=== PATIENT | female | born 1945 | race Caucasian/White ===

== ENCOUNTER 2020-01-09 07:37 | Outpatient (CLI) | payer OTHER, SELFPAY ==
--- NOTE | ~2020-01-09 | MM_ITS ---
EXAMINATION: MM screening [facility] w [facility] HISTORY: Screening mammogram TECHNIQUE: Craniocaudal and mediolateral oblique 3-D tomosynthesis images were obtained and synthetic 2-D images were generated. CAD analysis was submitted and interpreted. COMPARISON: 12/11/2018, 11/23/2017, 11/03/2016 bilateral digital screening mammogram examinations BREAST PARENCHYMAL COMPOSITION: There are scattered areas of fibroglandular density FINDINGS: There are bilateral benign calcifications. There is no evidence of suspicious mass, calcifi cation, or architectural distortion to suggest malignancy in either breast. There has been no suspici ous interval change. IMPRESSION: 1. No mammographic evidence of malignancy. 2. Recommend routine screening mammography in one year. BI-RADS Category 2: Benign finding(s). Reviewed, dictated and finalized at location A.
== END 2020-01-09 07:38 | disposition home or self-care (01) ==
LOC: ANHIMG 07:40
PROVIDERS: PCP Family Medicine; Visit Provider Family Medicine
DX: Z12.31 Encounter for screening mammogram for malignant neoplasm of breast (principal)
CPT/HCPCS: 77063; 77067

== ENCOUNTER 2021-01-11 09:47 | Outpatient (CLI) | payer OTHER, SELFPAY ==
--- NOTE | ~2021-01-11 | MM_ITS ---
EXAMINATION: MM screening [facility] w amrita HISTORY: Screening mammogram TECHNIQUE: Craniocaudal and mediolateral oblique 3-D tomosynthesis images were obtained and synthetic 2-D images were generated. CAD analysis was submitted and interpreted. COMPARISON: 01/09/2020, 12/11/2018, 11/23/2017 BREAST PARENCHYMAL COMPOSITION: There are scattered areas of fibroglandular density. FINDINGS: Scattered benign-appearing calcifications are present. Stable bilateral breast masses are c onsidered benign given the lack of interval change. There is no evidence of suspicious mass, calcific ation, or architectural distortion to suggest malignancy in either breast. There has been no suspicio us interval change. IMPRESSION: 1. No mammographic evidence of malignancy. 2. Recommend routine screening mammography in one year. BI-RADS Category 2: Benign finding(s). Reviewed, dictated and finalized at location A.
== END 2021-01-11 09:48 | disposition home or self-care (01) ==
LOC: ANHIMG 09:50
PROVIDERS: PCP Family Medicine; Visit Provider Family Medicine
DX: Z12.31 Encounter for screening mammogram for malignant neoplasm of breast (principal)
CPT/HCPCS: 77063; 77067

== ENCOUNTER 2021-09-28 00:21 | Day surgery (SDC) | payer OTHER, SELFPAY ==
[2021-09-08 13:09] VITALS: BMI 26.6
--- NOTE | 2021-09-27 16:43 | PM.HPGS ---
History of Present Illness History of Present Illness Consent: Risks, benefits, and alternatives have been discussed and questions answered. Patient agrees to proceed with procedure. Chief complaint: family hx of colon ca Narrative: Dari Muñoz is a 76 year old female Referred for colon cancer screening. Her mother had colon cancer. Her last colonoscopy was 5 years ago . Review of Systems Review of Systems: All systems reviewed & are unremarkable except as noted in HPI and below PMFSH Past Medical History Medical History Chronic kidney disease, stage 3 (moderate) Dyslipidemia Essential hypertension Family history of colon cancer Heart murmur Hypertensive chronic kidney disease with stage 1 through stage 4 chronic kidney disease, or unspecified chronic kidney disease Overweight Peripheral vascular disease, unspecified Pure hyperglyceridemia Stenosis of left subclavian artery Surgical History Surgical History History of cholecystectomy History of hysterectomy Family History Family History Father Hypertension, Onset Age: 66 Family history of renal failure Patient's father is Family history of kidney disease, Onset Age: 66 Family history of coronary artery disease Grandparent Asthma Sibling Patient's sister is in good health Family history of lung cancer Family history of irritable bowel syndrome Mother Family history of respiratory disorder, Onset Age: 80 Carcinoma of colon Family history of diabetes mellitus in first degree relative Patient's mother is Family history of coronary artery disease Diabetes mellitus, Onset Age: 79 Hypertension, Onset Age: 79 Other Family history of allergic disorder Family history of obesity Social History Social History Smoking status: Never smoker Second hand tobacco smoke exposure: No Alcohol intake: current Drinks per week: 0 Alcohol use details: rare Substance use: never Substance use type: does not use Living arrangements: alone Gender identity (if verbalized by the patient): Female Sexual Orientation (if Verbalized by the Patient): Straight or Heterosexual Spiritual care concerns: No Meds Home Medications and Allergies Home Medications Medication Instructions Recorded Confirmed Type aspirin 81 mg tablet,delayed 81 mg PO DAILY 06/09/19 09/08/21 History release (Adult Low Dose Aspirin) calcium-vitamin D3-vitamin K 500 1 tablet PO DAILY 06/09/19 09/08/21 History mg-1,000 unit-40 mcg chewable tablet (Calcium Soft Chew) multivitamin 1 cap PO DAILY 06/09/19 09/08/21 History omega-3 fatty acids 1,000 mg 1,000 mg PO DAILY 06/09/19 09/08/21 History capsule (Fish Oil Concentrate) irbesartan 150 mg tablet See Rx Instructions .Route 04/12/21 09/08/21 Rx .COMPLEX #90 tabs hydrochlorothiazide 25 mg tablet 25 mg PO DAILY #90 tabs 07/11/21 09/08/21 Rx amlodipine 5 mg tablet 5 mg PO DAILY #30 tabs 08/15/21 09/08/21 Rx pravastatin 10 mg tablet See Rx Instructions .Route 09/20/21 09/28/21 Rx .COMPLEX #90 tabs estradiol 1 mg tablet 1 mg PO DAILY #90 tabs 09/21/21 09/28/21 Rx Allergies Allergy/AdvReac Type Severity Reaction Status Date / Time guaifenesin Allergy Mild Rash Verified 09/28/21 07:12 amoxicillin Allergy Unknown Rash Verified 09/28/21 07:12 Sulfa (Sulfonamide Allergy Unknown Unknown Verified 09/28/21 07:12 Antibiotics) Exam Resp: Auscultation: clear to auscultation bilaterally Cardio: Rate: regular rate Rhythm: regular rhythm GI: GI Palp: Yes Soft to palpation and No Tenderness to palpation present (GI) Assessment and Plan Assessment and plan (1) Colon cancer screening: Code(s): Z12.11 - Encounter for screening for malignant ne
[2021-09-28 07:17] VITALS: BP 134/67; PULSE 86; RESP 19; TEMP 36.5; O2SAT 100
[2021-09-28] MEDS: LACTATED RINGERS 1,000 ML 150 ML IV CONT (07:27)
--- NOTE | 2021-09-28 08:12 | WPDANESEPPF ---
Anes - Initial Pre Proc Eval Procedure: Operation Date: 09/28/21 08:30 Proposed Procedures p Screening Colonoscopy - Brady Aguirre MD Date/Time: 09/28/21 08:12 Surgeon: Brady Aguirre MD Pre Op Diagnosis: family hx of colon ca Patient Data Age: 76 Gender: F Height: 1.57 m Weight: 63.4 kg Last Vital Signs Temp 97.7 F 09/28/21 07:17 Pulse 86 09/28/21 07:17 Resp 19 09/28/21 07:17 BP 134/67 09/28/21 07:17 Pulse Ox 100 09/28/21 07:17 O2 Del Method Room Air 09/28/21 07:17 Allergies Allergy/AdvReac Type Severity Reaction Status Date / Time guaifenesin Allergy Mild Rash Verified 09/28/21 07:12 amoxicillin Allergy Unknown Rash Verified 09/28/21 07:12 Sulfa (Sulfonamide Allergy Unknown Unknown Verified 09/28/21 07:12 Antibiotics) Home Medications Medication Instructions Recorded Confirmed Type aspirin 81 mg tablet,delayed 81 mg PO DAILY 06/09/19 09/08/21 History release (Adult Low Dose Aspirin) calcium-vitamin D3-vitamin K 500 1 tablet PO DAILY 06/09/19 09/08/21 History mg-1,000 unit-40 mcg chewable tablet (Calcium Soft Chew) multivitamin 1 cap PO DAILY 06/09/19 09/08/21 History omega-3 fatty acids 1,000 mg 1,000 mg PO DAILY 06/09/19 09/08/21 History capsule (Fish Oil Concentrate) irbesartan 150 mg tablet See Rx Instructions .Route 04/12/21 09/08/21 Rx .COMPLEX #90 tabs hydrochlorothiazide 25 mg tablet 25 mg PO DAILY #90 tabs 07/11/21 09/08/21 Rx amlodipine 5 mg tablet 5 mg PO DAILY #30 tabs 08/15/21 09/08/21 Rx pravastatin 10 mg tablet See Rx Instructions .Route 09/20/21 09/28/21 Rx .COMPLEX #90 tabs estradiol 1 mg tablet 1 mg PO DAILY #90 tabs 09/21/21 09/28/21 Rx Patient hx anesthesia problems: none Family hx anesthesia problems: none Results Review: All pre-operative results and documents have been reviewed as part of the pre-operative evaluation. [facility] Past Medical History Medical History Chronic kidney disease, stage 3 (moderate) Dyslipidemia Essential hypertension Family history of colon cancer Heart murmur Hypertensive chronic kidney disease with stage 1 through stage 4 chronic kidney disease, or unspecified chronic kidney disease Overweight Peripheral vascular disease, unspecified Pure hyperglyceridemia Stenosis of left subclavian artery Surgical History Surgical History History of cholecystectomy History of hysterectomy Family History Family History Father Hypertension, Onset Age: 66 Family history of renal failure Patient's father is Family history of kidney disease, Onset Age: 66 Family history of coronary artery disease Grandparent Asthma Sibling Patient's sister is in good health Family history of lung cancer Family history of irritable bowel syndrome Mother Family history of respiratory disorder, Onset Age: 80 Carcinoma of colon Family history of diabetes mellitus in first degree relative Patient's mother is Family history of coronary artery disease Diabetes mellitus, Onset Age: 79 Hypertension, Onset Age: 79 Other Family history of allergic disorder Family history of obesity Social History Social History Smoking status: Never smoker Second hand tobacco smoke exposure: No Alcohol intake: current Drinks per week: 0 Alcohol use details: rare Substance use: never Substance use type: does not use Living arrangements: alone Gender identity (if verbalized by the patient): Female Sexual Orientation (if Verbalized by the Patient): Straight or Heterosexual Spiritual care concerns: No Anes - Eval Final PreProcedure Day of Procedure 09/28/21 08:12 Patient weight: normal Heart: regular rate and rhythm Lungs: clear to auscultation
[2021-09-28 08:51] VITALS: BP 101/44; PULSE 68; RESP 22; O2SAT 99
[2021-09-28 09:01] VITALS: BP 105/47; PULSE 67; RESP 19; O2SAT 99
[2021-09-28 09:11] VITALS: BP 119/87; PULSE 62; RESP 15; O2SAT 99
== END 2021-09-28 09:20 | disposition home or self-care (01) ==
PROVIDERS: PCP Family Medicine; Visit Provider Internal Medicine Gastroenterology
PROC: 0DJD8ZZ Inspection of Lower Intestinal Tract, Via Natural or Artificial Opening Endoscopic (ICD-10-PCS; CPT 45378; principal; 2021-09-28 08:30)
DX: Z12.11 Encounter for screening for malignant neoplasm of colon (principal); K57.30 Diverticulosis of large intestine without perforation or abscess without bleeding; Z80.0 Family history of malignant neoplasm of digestive organs; I12.9 Hypertensive chronic kidney disease with stage 1 through stage 4 chronic kidney disease, or unspecified chronic kidney disease; N18.30 Chronic kidney disease, stage 3 unspecified; E78.5 Hyperlipidemia, unspecified; I73.9 Peripheral vascular disease, unspecified; E78.1 Pure hyperglyceridemia
CPT/HCPCS: G0105; J2704; J7120

== ENCOUNTER 2022-03-01 08:20 | Outpatient (CLI) | payer OTHER, SELFPAY ==
--- NOTE | ~2022-03-01 | MM_ITS ---
EXAMINATION: MM screening [facility] w amrita HISTORY: Screening mammogram TECHNIQUE: Craniocaudal and mediolateral oblique 3-D tomosynthesis images were obtained and synthetic 2-D images were generated. CAD analysis was submitted and interpreted. COMPARISON: 01/11/2021, 01/09/2020, 12/11/2018 bilateral screening mammogram examinations BREAST PARENCHYMAL COMPOSITION: There are scattered areas of fibroglandular density. FINDINGS: Scattered bilateral benign calcifications. Stable mild asymmetry. There is no evidence of s uspicious mass, calcification, or architectural distortion to suggest malignancy in either breast. Th ere has been no suspicious interval change. IMPRESSION: 1. No mammographic evidence of malignancy. 2. Recommend routine screening mammography in one year. BI-RADS Category 2: Benign finding(s). Reviewed, dictated and finalized at location A. HES IRONER
== END 2022-03-01 08:21 | disposition home or self-care (01) ==
LOC: ANHIMG 08:24
PROVIDERS: PCP Family Medicine; Visit Provider Family Medicine
DX: Z12.31 Encounter for screening mammogram for malignant neoplasm of breast (principal)
CPT/HCPCS: 77063; 77067

== ENCOUNTER 2023-06-12 08:48 | Outpatient (CLI) | payer OTHER, SELFPAY ==
--- NOTE | ~2023-06-12 | MM_ITS ---
EXAMINATION: MM screening [facility] w amrita HISTORY: Screening TECHNIQUE: Craniocaudal and mediolateral oblique 3-D tomosynthesis images were obtained and synthetic 2-D images were generated. CAD analysis was submitted and interpreted. COMPARISON: Comparison to multiple prior studies sequentially, with oldest reviewed study dated 11/03. BREAST PARENCHYMAL COMPOSITION: There are scattered areas of fibroglandular density. FINDINGS: There is no evidence of suspicious mass, calcification, or architectural distortion to sugg est malignancy in either breast. There has been no suspicious interval change. IMPRESSION: 1. No mammographic evidence of malignancy. 2. Recommend routine screening mammography in one year. BI-RADS Category 1: Negative Reviewed, dictated and finalized at location A. ARIAN
== END 2023-06-12 08:49 | disposition home or self-care (01) ==
PROVIDERS: PCP Family Medicine; Visit Provider Family Medicine
DX: Z12.31 Encounter for screening mammogram for malignant neoplasm of breast (principal)
CPT/HCPCS: 77063; 77067

== ENCOUNTER 2023-06-30 14:51 | Emergency (ER) | payer OTHER, SELFPAY ==
--- NOTE | 2023-06-30 14:53 | ED.URI ---
HPI - URI/Sore Throat General Chief Complaint: Upper Respiratory Infection Stated Complaint: Congestion,Cough,Runny Nose Time Seen by Provider: 06/30/23 14:53 Source: patient Mode of arrival: ambulatory Limitations: no limitations History of Present Illness HPI Narrative: Patient is a 77-year-old female who presents with 1 week of cough, congestion, runny nose. Patient states over the last 2 days she has had increased burning sensation when coughing. Patient has been using Astepro nasal spray for the last 3 days. Denies any shortness of breath, fever, chills, nausea, vomiting, diarrhea. Reports history of pneumonia. Related Data Home Medications Medication Instructions Recorded Confirmed aspirin 81 mg tablet,delayed 81 mg PO DAILY 06/09/19 06/30/23 release (Adult Low Dose Aspirin) calcium-vitamin D3-vitamin K 500 1 tablet PO DAILY 06/09/19 06/30/23 mg-1,000 unit-40 mcg chewable tablet (Calcium Soft Chew) multivitamin 1 cap PO DAILY 06/09/19 06/30/23 omega-3 fatty acids 1,000 mg 1,000 mg PO DAILY 06/09/19 06/30/23 capsule (Fish Oil Concentrate) Allergies Allergy/AdvReac Type Severity Reaction Status Date / Time amoxicillin AdvReac Mild Rash Verified 06/30/23 15:07 guaifenesin AdvReac Mild Rash Verified 06/30/23 15:07 Sulfa (Sulfonamide AdvReac Mild Rash Verified 06/30/23 15:07 Antibiotics) Review of Systems Review of Systems: All systems reviewed & are unremarkable except as noted in HPI and below Constitutional: Constitutional: Denies body ache(s), Denies chills, Denies fatigue, Denies fever(s), Denies headache(s), Denies malaise and Denies weakness Eyes: Eyes: Denies blurry vision, Denies itchy eyes and Denies loss of vision ENT: Denies otalgia, Denies headache(s), Reports nasal congestion, Denies sinus pain and Denies sore throat Cardiovascular: Cardiovascular: Denies chest pain, Denies irregular heart rhythm and Denies dyspnea Respiratory: Respiratory: Reports cough and Denies dyspnea Gastrointestinal: Gastrointestinal: Denies abdominal pain, Denies diarrhea, Denies nausea and Denies vomiting Musculoskeletal: Musculoskeletal: Denies back pain, Denies myalgias and Denies arthralgias Integumentary/Breasts: Skin/Breast: Denies pruritus and Denies rash Neurologic: Denies headache(s), Denies loss of vision and Denies weakness Psychiatric: Psychiatric: Reports no additional psychiatric complaints Endocrine: Endocrine: Denies fatigue Allergic/Immunologic: Allergic/Immunologic: Denies itchy eyes PMFSH Past Medical History Medical History Chronic kidney disease, stage 3 (moderate) Dyslipidemia Essential hypertension Family history of colon cancer Heart murmur Hypertensive chronic kidney disease with stage 1 through stage 4 chronic kidney disease, or unspecified chronic kidney disease Overweight Peripheral vascular disease, unspecified Pure hyperglyceridemia Stenosis of left subclavian artery Surgical History Surgical History History of cholecystectomy History of hysterectomy Family History Family History Father Hypertension, Onset Age: 66 Family history of renal failure Patient's father is Family history of kidney disease, Onset Age: 66 Family history of coronary artery disease Grandparent Asthma Sibling Patient's sister is in good health Family history of lung cancer Family history of irritable bowel syndrome Mother Family history of respiratory disorder, Onset Age: 80 Carcinoma of colon Family history of diabetes mellitus in first degree relative Patient's mother is Family history of coronary artery disease Diabetes mellitus, Onset Age: 79 Hypertension, Onset Age: 79 Other Family history of allergic disorder Family history of obesity Social History Soci
[2023-06-30 15:04] VITALS: BP 144/63; PULSE 69; RESP 16; TEMP 36.5; O2SAT 99
== END 2023-06-30 17:23 | disposition home or self-care (01) ==
PROVIDERS: Emergency Provider Nurse Practitioner Family; PCP Family Medicine
DX: J06.9 Acute upper respiratory infection, unspecified (principal); E78.5 Hyperlipidemia, unspecified; I12.9 Hypertensive chronic kidney disease with stage 1 through stage 4 chronic kidney disease, or unspecified chronic kidney disease; N18.30 Chronic kidney disease, stage 3 unspecified; R01.1 Cardiac murmur, unspecified; I73.9 Peripheral vascular disease, unspecified; Z79.82 Long term (current) use of aspirin
CPT/HCPCS: 99213; G0463

== ENCOUNTER 2023-08-15 07:44 | Outpatient (CLI) | payer OTHER, SELFPAY ==
--- NOTE | ~2023-08-15 | DEXA_ITS ---
Bone Density Report Name: COLLIN WALL Age: 78 Sex: Female Ethnicity: White Date of : 1945 Indication: postmenopausal; screening for osteoporosis; hysterectomy; Referring Provider: ALBERTO ARIAS Study: Bone densitometry was performed. Exam Date: August 15, 2023 Accession number: [id number] Bone Density: Region BMD T-score Z-score Classification AP Spine(L1-L4) 1.412 3.3 5.8 Normal Femoral Neck (Left) 1.072 2.0 4.2 Normal Total Hip (Left) 1.178 1.9 3.8 Normal Femoral Neck (Right) 1.084 2.1 4.3 Normal Total Hip (Right) 1.256 2.6 4.5 Normal Total Hip Mean 1.217 2.3 4.2 Normal World Health Organization criteria for BMD impression classify patients as: Normal (T-score at or above -1.0), Osteopenia (T-score between -1.0 and -2.5), or Osteoporosis (T-score at or below -2.5). 10-year Fracture Risk: FRAX not reported because: All T-scores for Spine Total, Hip Total, Femoral Neck at or above -1.0 Clinical Information Provided by Patient: Has used the following medications: Calcium Has the following medical conditions: Hysterectomy Patient maximum height was 62.5 Menopause Age: 41 No regular weight bearing exercise Drinks caffeinated beverages Onset of menses at age 14 Number of children 2 Impression: The patient has normal bone mass. Discussion: LOW RISK OF FRACTURE; BONE DENSITY IS WELL ABOVE THE MINIMUM DESIRABLE LEVEL AND ABOVE AVERAGE FOR AGE AND SEX AT ALL SKELETAL SITES TESTED. This person's bone density is above expected limits for age and sex. This is rarely clinically significant, but should be pursued if there are significant musculoskeletal complaints. The patient should follow a healthful lifestyle (good nutrition with adequate calcium and vitamin D, and appropriate weight-bearing exercise). Follow-Up: Consider repeating this study in 5 years or sooner if there is some new clinical indication. Reported by: SUNNI on 08/15/2023 8:18:00 AM. Reviewed, dictated and finalized at location AJacqueline CHAUDHARY
== END 2023-08-15 07:45 | disposition home or self-care (01) ==
LOC: ANHIMG 07:45
PROVIDERS: PCP Family Medicine; Visit Provider Family Medicine
DX: Z78.0 Asymptomatic menopausal state (principal)
CPT/HCPCS: 77080

== ENCOUNTER 2024-08-18 07:46 | Outpatient (CLI) | payer OTHER, SELFPAY ==
--- NOTE | ~2024-08-18 | MM_ITS ---
EXAMINATION: MM screening [facility] BI w amrita HISTORY: Screening mammogram TECHNIQUE: Craniocaudal and mediolateral oblique 3-D tomosynthesis images were obtained and synthetic 2-D images were generated. CAD analysis was submitted and interpreted. COMPARISON: 06/12/2023, 03/01/2022, 01/11/2021 BREAST PARENCHYMAL COMPOSITION:Not Dense. There are scattered areas of fibroglandular density. FINDINGS: No suspicious mass, calcification, or architectural distortion are identified in either shirley ast to suggest malignancy. There has been no suspicious interval change. IMPRESSION: No mammographic evidence of malignancy. Recommend routine screening mammography in one year. BI-RADS Category 1: Negative Reviewed, dictated and finalized at location .
== END 2024-08-18 07:47 | disposition home or self-care (01) ==
LOC: ANHIMG 07:49
PROVIDERS: PCP Family Medicine; Visit Provider Family Medicine
DX: Z12.31 Encounter for screening mammogram for malignant neoplasm of breast (principal)
CPT/HCPCS: 77063; 77067